=== PATIENT | female | born 2005 | race Caucasian/White ===

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

== ENCOUNTER 2025-05-25 08:57 | Emergency (ER) | payer OTHER ==
[~2025-05-25] VITALS: Ht 175.3 cm; Wt 142.9 kg
[~2025-05-25 08:57] MED LIST changes: +SULTRIDS PO
[2025-05-25 09:20] VITALS: BP 146/71
[2025-05-25] MEDS ORDERED: BACTRIM DS TAB1 EAC1 PO (10:12)
== END 2025-05-25 11:00 | disposition home or self-care (01) ==
LOC: ER 08:57
DX: N75.1 Abscess of Bartholin's gland (principal); Z88.8 Allergy status to other drugs, medicaments and biological substances; Z59.89 Other problems related to housing and economic circumstances
CPT/HCPCS: 56420; 87070; 87075; 87077; 87147; 87186; 87205; 99283-25

== ENCOUNTER 2025-06-23 15:59 | Emergency (ER) | payer OTHER ==
[~2025-06-23] VITALS: Ht 172.7 cm; Wt 141.5 kg
[~2025-06-23 15:59] MED LIST changes: +BACTRIM DS TAB1 EAC1 PO
[2025-06-23 16:40] VITALS: BP 140/94
[2025-06-23] MEDS ORDERED: AMOCLA875 PO (18:28)
[2025-06-23] MEDS ORDERED: OCUFLOX5 M9 RIGHTEAR (18:28)
== END 2025-06-23 18:36 | disposition home or self-care (01) ==
LOC: ER 15:59
DX: H66.92 Otitis media, unspecified, left ear (principal); H72.91 Unspecified perforation of tympanic membrane, right ear; J02.9 Acute pharyngitis, unspecified; Z79.2 Long term (current) use of antibiotics
CPT/HCPCS: 87081; 87430; 99282; A9270